=== PATIENT | female | born 1975 | race Caucasian/White ===

== ENCOUNTER 2021-09-22 21:01 | Emergency (ER) | payer OTHER ==
[~2021-09-22 21:01] MED LIST: IBUPROFEN800 MG PO; MEDROL 4MG DOSEP4 MG PO
[2021-09-22] MEDS ORDERED: IBUPROFEN800 MG PO (22:21)
== END 2021-09-22 22:30 | disposition home or self-care (01) ==
LOC: FER 21:01
DX: S46.912A Strain of unspecified muscle, fascia and tendon at shoulder and upper arm level, left arm, initial encounter (principal); Z88.5 Allergy status to narcotic agent; X50.1XXA Overexertion from prolonged static or awkward postures, initial encounter; Y99.0 Civilian activity done for income or pay
CPT/HCPCS: 73030; J1885

== ENCOUNTER 2021-10-22 14:06 | Emergency (ER) | payer OTHER ==
[2021-10-22 15:32] LABS: CORONAVIRUS 2019 SARS-COV-2 NEGATIVE (NEGATIVE); INFLUENZA A NAA NEGATIVE (NEGATIVE)
[2021-10-22] MEDS ORDERED: PAXLOVID 150-11 EACH PO (16:00)
== END 2021-10-22 17:43 | disposition home or self-care (01) ==
LOC: FER 14:06
PROVIDERS: Emergency Medicine
DX: B34.9 Viral infection, unspecified (principal); Z88.8 Allergy status to other drugs, medicaments and biological substances; Z20.822 Contact with and (suspected) exposure to COVID-19; Z28.310 Unvaccinated for COVID-19
CPT/HCPCS: 99283; U0002